=== PATIENT | male | born 1950 | race African-American/Black ===

== ENCOUNTER 2020-04-02 10:46 | Inpatient (IN) ==
[2020-03-27 11:58] LABS: Basophils % 0.4 % (0.0-0.8); Eosinophils # 0.3 10*3/uL (0.0-0.87); Eosinophils % 4.9 % (0.00-10.9); Hematocrit 31.5 VOL% (42.0-52.0); Hemoglobin 10.2 GM/DL (14.0-18.0); Immature Granulocytes % 0.5 %; Immature Granulocytes Absolute 0.03 #; Lymphocytes # 1.7 10*3/uL (1.4-4.0); Lymphocytes % 29.2 % (21.2-54.2); Mean Corpuscular HGB Conc 32.4 GM/DL (32-36); Mean Corpuscular Volume 80.4 FL (87-102); Mean Platelet Volume 10.7 FL (9.6-12.0); Monocytes % 10.6 % (1.7-12.7); Neutrophils % 54.4 % (38.7-73.9); Platelet Count 277 T/CUMM (130-400); Red Blood Count 3.92 MC/CUMM (3.8-5.5); Red Cell Distribution Width 15.8 % (9.3-17.3); White Blood Count 5.7 T/CUMM (4-12)
[2020-03-27 12:14] LABS: Calcium 8.6 MG/DL (8.5-10.1); Osmolality,Calculated 290.4 MOS/KG (273-304)
[~2020-04-02 10:46] MED LIST: ALVIMOPAN 12 MG CAPSULE PO ONE
[2020-04-02] MEDS ORDERED: ALVIMOPAN 12 MG CAPSULE ONE (12:12)
[2020-04-02] MEDS ORDERED: ERTAPENEM 1,000 MG VIAL ONE (12:12)
[2020-04-02] MEDS: LACTATED RINGERS 1,000 ML IV SCH ×4 (12:18→21:17)
[2020-04-02] MEDS ORDERED: DIAZEPAM 5 MG TABLET PO ONE (12:37)
[2020-04-02] MEDS ORDERED: FAMOTIDINE 20 MG TABLET PO ONE (12:37)
[2020-04-02] MEDS ORDERED: DIAZEPAM 5 MG TABLET ONE (12:39)
[2020-04-02] MEDS ORDERED: FAMOTIDINE 20 MG TABLET ONE (12:40)
[2020-04-02] MEDS ORDERED: ROPIVACAINE 0.5% 30 ML VIAL ONE (13:25)
[2020-04-02] MEDS ORDERED: LIDOCAINE 2% 5 ML VIAL ONE ×2 (13:25→17:12)
[2020-04-02] MEDS ORDERED: DEXAMETHASONE 4 MG/1 ML VIAL ONE (13:25)
[2020-04-02] MEDS ORDERED: BUPIVACAINE MPF 0.25% 30 ML VIAL ONE (13:42)
[2020-04-02] MEDS ORDERED: LIDOCAINE 1%/EPI INJ 20 ML VIAL ONE (13:42)
[2020-04-02] MEDS ORDERED: TISSUE ADHESIVE 1 EACH APPLICATOR TOP ONE (13:42)
[2020-04-02] MEDS ORDERED: INDOCYANINE GREEN 25 MG VIAL IV ONE (15:17)
[2020-04-02] MEDS ORDERED: fentaNYL 100 MCG/2 ML VIAL ONE (17:12)
[2020-04-02] MEDS ORDERED: SEVOFLURANE 1 UNIT/15 MINUTE INH ONE (17:12)
[2020-04-02] MEDS ORDERED: MIDAZOLAM 2 MG/2 ML VIAL ONE (17:12)
[2020-04-02] MEDS ORDERED: propofoL 200 MG/20 ML VIAL IV ONE (17:12)
[2020-04-02] MEDS ORDERED: ONDANSETRON 4 MG/2 ML VIAL ONE (17:13)
[2020-04-02] MEDS ORDERED: GLYCOPYRROLATE 0.4 MG/2 ML VIAL ONE (17:13)
[2020-04-02] MEDS ORDERED: NEOSTIGMINE 10 MG/10 ML VIAL ONE (17:13)
[2020-04-02] MEDS ORDERED: LACTATED RINGERS 1,000 ML IV ONE (17:13)
[2020-04-02] MEDS ORDERED: ROCURONIUM 100 MG/10 ML VIAL IV ONE (17:13)
[2020-04-02] MEDS ORDERED: PHENYLEPHRINE 1 MG/10 ML SYRINGE IV ONE (17:13)
[2020-04-02] MEDS ORDERED: ACETAMINOPHEN 1,000 MG/100 ML VIAL IV ONE (17:13)
[2020-04-02] MEDS ORDERED: ONDANSETRON 4 MG/2 ML VIAL IV PRN ×2 (17:18→18:12)
[2020-04-02] MEDS: HYDROmorphone 2 MG/1 ML VIAL IV PRN ×4 (17:25→17:45)
[2020-04-02] MEDS ORDERED: DEXTROSE 10% 250 ML BAG IV PRN (18:12)
[2020-04-02] MEDS ORDERED: GLUCAGON 1 MG VIAL IM PRN (18:12)
[2020-04-02] MEDS ORDERED: ATORVASTATIN 20 MG TABLET PO SCH (21:00)
[2020-04-02] MEDS ORDERED: TERAZOSIN 10 MG CAPSULE PO SCH (21:00)
[2020-04-02] MEDS: GABAPENTIN 400 MG CAPSULE PO SCH (21:05)
[2020-04-02] MEDS: ALVIMOPAN 12 MG CAPSULE PO SCH (21:05)
[2020-04-02] MEDS: INSULIN REGULAR 100 UNIT/ML SUBCUT SCH (21:05)
[2020-04-02 23:14] LABS: Basophils % 0.1 % (0.0-0.8); Hematocrit 35.4 VOL% (42.0-52.0); Hemoglobin 11.4 GM/DL (14.0-18.0); Immature Granulocytes % 0.6 %; Immature Granulocytes Absolute 0.09 #; Lymphocytes # 0.6 10*3/uL (1.4-4.0); Lymphocytes % 4.1 % (21.2-54.2); Mean Corpuscular HGB Conc 32.2 GM/DL (32-36); Mean Corpuscular Volume 80.3 FL (87-102); Mean Platelet Volume 9.7 FL (9.6-12.0); Monocytes % 5.1 % (1.7-12.7); Neutrophils % 90.1 % (38.7-73.9); Platelet Count 270 T/CUMM (130-400); Red Blood Count 4.41 MC/CUMM (3.8-5.5); Red Cell Distribution Width 15.2 % (9.3-17.3); White Blood Count 14.9 T/CUMM (4-12)
[2020-04-02 23:18] LABS: Calcium 8.9 MG/DL (8.5-10.1); Osmolality,Calculated 282.1 MOS/KG (273-304)
[2020-04-03] MEDS: HYDROmorphone 2 MG/1 ML VIAL IV PRN ×2 (02:09→05:56)
[2020-04-03 04:17] LABS: Lymphocytes 3 % (20-55); Segmented Neutrophils 94 % (50-85); Total Cells Counted 100
[2020-04-03 04:21] LABS: Platelet Estimate Normal
[2020-04-03 05:55] LABS: Basophils % 0.1 % (0.0-0.8); Hemoglobin 10.8 GM/DL (14.0-18.0); Immature Granulocytes % 0.5 %; Immature Granulocytes Absolute 0.06 #; Lymphocytes # 0.9 10*3/uL (1.4-4.0); Lymphocytes % 6.8 % (21.2-54.2); Mean Corpuscular HGB Conc 32.7 GM/DL (32-36); Mean Corpuscular Volume 80.3 FL (87-102); Mean Platelet Volume 10.1 FL (9.6-12.0); Monocytes % 5.4 % (1.7-12.7); Neutrophils % 87.2 % (38.7-73.9); Platelet Count 256 T/CUMM (130-400); Red Blood Count 4.11 MC/CUMM (3.8-5.5); Red Cell Distribution Width 15.2 % (9.3-17.3); White Blood Count 13.1 T/CUMM (4-12)
[2020-04-03 06:11] LABS: Calcium 8.6 MG/DL (8.5-10.1); Osmolality,Calculated 282.2 MOS/KG (273-304)
[2020-04-03] MEDS: INSULIN REGULAR 100 UNIT/ML SUBCUT SCH (08:10)
[2020-04-03] MEDS: GABAPENTIN 400 MG CAPSULE PO SCH (08:10)
[2020-04-03] MEDS: ALVIMOPAN 12 MG CAPSULE PO SCH (08:11)
[2020-04-03] MEDS: LACTATED RINGERS 1,000 ML IV SCH (08:11)
[2020-04-03] MEDS ORDERED: CYANOCOBALAMIN 500 MCG TABLET PO SCH (09:00)
[2020-04-03] MEDS ORDERED: ASPIRIN EC 81 MG TABLET PO SCH (09:00)
[2020-04-03] MEDS ORDERED: FLUTICASONE 50 MCG NASAL SPRAY 16 GM BOTTLE BOTH NARES SCH (09:00)
[2020-04-03] MEDS ORDERED: PANTOPRAZOLE 40 MG TABLET PO SCH (09:00)
[2020-04-03] MEDS ORDERED: LORATADINE 10 MG TABLET PO SCH (09:00)
[2020-04-03] MEDS ORDERED: LISINOPRIL/HCTZ 20-25 MG TABLET PO SCH (09:00)
[2020-04-03] MEDS ORDERED: MULTIVITAMIN (CENTRUM) TABLET PO SCH (09:00)
[2020-04-03] MEDS ORDERED: amLODIPine 10 MG TABLET PO SCH (09:00)
[2020-04-03] MEDS ORDERED: FINASTERIDE 5 MG TABLET PO SCH (09:00)
[2020-04-03] MEDS ORDERED: FERROUS SULFATE 325 MG TABLET PO SCH (09:00)
[2020-04-03] MEDS ORDERED: OMEGA 3 ACID ETHYL ESTERS 1 GM CAPSULE PO SCH (09:00)
[2020-04-03 10:22] VITALS: BP 129/61
[2020-04-03] MEDS ORDERED: ENOXAPARIN 40 MG/0.4 ML SYRINGE SUBCUT SCH (12:00)
== END 2020-04-03 13:00 | disposition home or self-care (01) | DRG 330 ==
LOC: N.OR 10:46 → N.4E 10:46 → N.SDSINP 10:54 → OBSVTOIN 17:00 → SUPCPDRO 17:00 → N.4E 18:10
PROVIDERS: ADMIT Surgery; ATTEND Surgery